=== PATIENT | male | born 1945 ===

== ENCOUNTER 2021-10-22 13:30 | Outpatient (CLI) | payer MEDICARE, BC | END 2021-10-22 13:31 | disposition home or self-care (01) | LOC: CSHULT 13:30 | PROVIDERS: ATTEND Urology | DX: Z87.440 Personal history of urinary (tract) infections (principal); N40.1 Benign prostatic hyperplasia with lower urinary tract symptoms; N28.1 Cyst of kidney, acquired | CPT/HCPCS: 76770 ==

== ENCOUNTER 2021-11-08 13:06 | Outpatient (CLI) | payer MEDICARE, BC ==
[2021-11-08] MEDS ORDERED: Iopamidol 300 61% 100 ML VIAL FS ONE (15:03)
== END 2021-11-08 13:07 | disposition home or self-care (01) ==
LOC: CSHCT 13:06
PROVIDERS: ATTEND Urology
DX: N40.1 Benign prostatic hyperplasia with lower urinary tract symptoms (principal); Z87.440 Personal history of urinary (tract) infections; D49.4 Neoplasm of unspecified behavior of bladder; N28.1 Cyst of kidney, acquired; N28.9 Disorder of kidney and ureter, unspecified; K80.20 Calculus of gallbladder without cholecystitis without obstruction; K76.9 Liver disease, unspecified; K57.30 Diverticulosis of large intestine without perforation or abscess without bleeding
CPT/HCPCS: 74178; 82565; Q9967